=== PATIENT | female | born 1990 | race Caucasian/White ===

== ENCOUNTER 2024-12-12 08:35 | Outpatient (AMB) | payer OTHER, SELFPAY ==
--- NOTE | 2024-12-12 08:46 | MHC.PC.OV ---
Vital Signs 12/12/24 08:52 Height 5 ft 3 in Weight 269 lb 2 oz BMI 47.7 BP 124/80 Blood Pressure Location Lt brachial Position Sitting Pulse 92 Pulse Source Pulse Oximeter Temp 97.5 F Temp Source Skin Pulse Oximetry (%) 98 Oxygen Delivery Method Room Air Intake Visit Reasons: establish care Gynaecological Oncologist Required: No Accompanied by: Self / Same As Patient Allergies No Known Allergies Allergy (Verified 12/12/24 09:01) Medication List - Last Reconciled 12/12/24 by IVIS Pereyra vit no.[id number] 27 mg iron- 800 mcg ( Vitamin) tabs PO DAILY Tobacco use date assessed: 12/12/24 Dental Screening Dental Screen Date: 12/12/24 Did you have a dental visit in the last 12 months?: Yes Did you have a dental problem in the last 6 months where you did not have access to dental care?: No Was dental information given to patient?: Patient has dentist HPI establish care HPI Details The patient is a 34-year-old female who was presenting to establish care Previous PCP: does not have one Last visit:n/a Last PE:n/a Specialist: n/a OBGYN: Dr. Rinku Hathaway in [place], [facility] Past medical history: One child so far and one on the way in december, will be having a , last child was a emergency because he was big (this one is the same), reports that she did not have any complications during any of her pregnancies Medications: Family HX: mother ca-Hodgkin lymphoma, leukaemia-past from [place], htn 2020 (56 y/o), grandfather ,-ca for he panaceas, passed 2014. Problem: The patient reports that she does have any concerns today She reports hx of right breast lump that has been benign The last time it was checked was 6 months ago Right mandibular small lump: Reports that she found this about two years ago, but have not done anything about it The small area does not hurt or moves; it is beneath the skin and cannot be seen by the visual eyes and is only felt during palpation SDM: Will wait until the patient delivers and stabilize then we will revisit this. The patient has a planned in December 30 . Bilateral knees: The patient reports that hurts needs started hurting recently Reports that this is due to the extra weight on. 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, reports that after a long day of working the knee pain is worse But reports that one day they started hurting while she was laying down reports that it feels sore but not sharp, reports 6-7/10 at times, like after working the whole week plans to wait till after having the delivers, she will schedule a follow up appt [facility] Family History Mother Hodgkins disease Leukemia Myocardial infarction Hypertension Maternal Grandfather Pancreatic cancer Other Diabetes Social History Housing: House Patient Tobacco Use Status: Never used Tobacco e-Cigarette/Vaping Use: Never Used Second Hand Smoke Exposure: No service: No Current occupational status: employed Current occupational exposures/hazards: No Cognitive needs: No Hearing needs: No Vision needs: No Questionnaire PHQ-9 Over the last 2 weeks, how often have you been bothered by any of the following problems? 1. Little interest or pleasure in doing things: not at all 2. Feeling down, depressed, or hopeless: not at all 3. Trouble falling or staying asleep, or sleeping too much: not at all 4. Feeling tired or having little energy: not at all 5. Poor appetite or overeating: not at all 6. Feeling bad about yourself - or that you are a failure or have let yourself or your family down: not at all 7. Trouble concentrating on things, such as reading the newspaper or watching television: not at all 8. Moving or speaking so slowly that other people could have noticed. Or the opposite - being so fidgety or restless that you have been moving around a lot more than usual: not at all 9. Thoughts that you would be better off or of hurting yourself in some way: not at all Total score: 0 Depression Screening Interpretation: Negative Depression Screening Done: Yes 69986 - PHQ-9 Billing: Yes Source: Developed by Drs. Rinku Larios, Cheri Jj, Vikas Celis and colleagues, with an educational chad from [employer]. Thrive Questionnaire Date Thrive assessed: 12/12/24 I am a: Patient What is your living situation today?: I have a steady place to live Within the past 12 months, did the food you bought not last and you didn't have the money to get more?: Never true Within the past 12 months, did you worry whether your food would run out before you got money to buy more?: Never true Do you have trouble paying for medicines?: I choose not to answer this question Do you have trouble getting transportation to medical appointments?: No Do you have trouble paying your heating and electricity bill?: No Do you have trouble taking care of your child, family member or friend?: No Do you have trouble with day-to-day activities such as bathing, preparing meals, shopping, managing finances, etc.?: No Are you currently unemployed and looking for a job?: No Are you interested in more education?: I choose not to answer this question Please select the resources that you would like help with: None Currently or been in a relationship where the following occur: No concerns reported THRIVE Score: 0 AUDIT C Alcohol Use Questionnaire (AUDIT-C) 1. How often do you have a drink containing alcohol?: Never 2. How many drinks containing alcohol do you have on a typical day when you are drinking?: 1 or 2 3. How often do you have six or more drinks on one occasion?: Never Total Score: 0 Score Reviewed/Action Taken: No FLORENTIN-7 AMB Questionnaire FLORENTIN-7 Date FLORENTIN - 7 assessed: 12/12/24 Feeling nervous, anxious, or on edge: 0 = Not at all Not being able to stop or control worryin = Not at all Worrying too much about different things: 0 = Not at all Trouble relaxin = Several days Being so restless that it is hard to sit still: 0 = Not at all Becoming easily annoyed or irritable: 0 = Not at all Feeling afraid as if something awful might happen: 0 = Not at all Total FLORENTIN-7 score (0-4 normal; 5-9 mild; 10-14 moderate; 15-21 severe): 1 Source: Developed by Drs. Rinku Larios, Cheri Jj, Vikas Celis and colleagues, with an educational chad from [employer]. FLORENTIN-7 Assessment Billing FLORENTIN-7 Assessment Tool: FLORENTIN-7 Assessment 06309 Review of Systems Const Denies headache(s) Eyes Denies loss of vision ENT Denies vertigo, Denies dizziness, Denies headache(s), Denies sore throat and Reports other (right mandibular lump) Card Denies chest pain, Denies leg edema, Denies lightheadedness and Denies dyspnea Resp Denies cough, Denies hemoptysis, Denies dyspnea and Denies wheezing GI Denies abdominal pain, Denies melena, Denies constipation, Denies diarrhea and Denies vomiting Denies urinary frequency, Denies dysuria and Denies urinary urgency Musc Reports arthralgias (both knees, right worse than left), Denies joint swelling, Denies numbness and Denies tingling Skin/Breast Reports breast mass (hx of right breast lump (benign) last checked 6 months ago) Neuro Denies Abnormal speech present, Denies behavioral changes, Denies vertigo, Denies dizziness, Denies headache(s), Denies loss of vision, Denies memory loss, Denies numbness and Denies tingling Psych Denies anxiety, Denies behavioral changes, Denies depression, Denies memory loss and Denies panic attacks Lui/Lymph Denies easy bleeding and Denies easy bruising Aller/Immun Denies wheezing Physical exam (Primary Care) Vital Signs: Last Vital Signs Temp 97.5 F 12/12/24 08:52 Pulse 92 12/12/24 08:52 BP 124/80 12/12/24 08:52 Pulse Ox 98 12/12/24 08:52 Oxygen Delivery Method Room Air 12/12/24 08:52 BMI result Body Mass Index 47.7 Tobacco/Smoking Status: Tobacco use Status Tobacco use date assessed 12/12/24 12/12/24 08:55 Patient Tobacco Use Status Never used Tobacco 12/12/24 09:00 e-Cigarette/Vaping Use Never Used 12/12/24 09:00 PHQ-9: PHQ-9 Score PHQ-9: Total score 0 12/12/24 09:22 Depression Screening Interpretation: Negative Thrive Assessment: Date of Thrive Assessment Date Thrive assessed 12/12/24 12/12/24 08:55 Currently or been in a relationship where the following occur: No concerns reported Const General: healthy appearing, no acute distress, alert and awake Nutritional Appearance: well nourished Orientation/consciousness: oriented to person, oriented to place and oriented to time HENMT Ears: TM's normal bilaterally General nose exam: Normal nasal mucous membranes and turbinates present Face and sinus: Yes other (small lump area to the right mandibular area) Eyes Conjunctivae: conjunctivae normal Sclerae: sclerae normal Pupils: Equal, round and reactive pupils present Neck Neck: Yes no lymphadenopathy and Yes no JVD Thyroid: Thyroid normal Carotids: no bruits Resp Effort & Inspection: normal respiratory effort and not tachypneic Auscultation: no crackles, no rales, no rhonchi and no wheezes Cardio Rate: regular rate Rhythm: regular rhythm Heart sounds: no murmurs and normal S1 and S2 GI Palpation (GI): Soft to palpation, nontender, no hepatomegaly and no splenomegaly Auscultation: normal bowel sounds General: Yes no CVA tenderness Back/Spine/Pelvis Back: no CVA tenderness Cervical Spine: No Cervical spine tenderness and cervical ROM abnormal Thoracic/Lumbar Spine: thoracic and lumbar spine normal to inspection Pelvis: no pain with anterior-posterior compression Skin General skin exam: no rashes or lesions noted and dry skin Neuro General: oriented to person, oriented to place and oriented to time Cranial nerves: Yes Equal, round and reactive pupils present Speech: No Abnormal speech present Gait exam (Neuro): Normal gait present Motor exam (neuro): no tremor noted Extrem Right upper extremity: full ROM Left upper extremity: full ROM Right lower extremity: normal to inspection, full ROM and normal capillary refill; no edema Left lower extremity: normal to inspection, full ROM and normal capillary refill; no edema Psych Mental Status: mental status grossly normal Speech and movement: Normal speech and movement present Affect: normal affect Attitude: cooperative Thought process: Normal thought process present Coding Level of Care Code New Pt Level 3 (41813) Diagnoses and not yet delivered in third trimester Z34.93 Trimester: third trimester Pain in both knees, unspecified chronicity M25.561; M25.562 Chronicity: unspecified Mass of right breast, unspecified quadrant N63.10 Breast mass location: unspecified quadrant Unspecified cyst of jaw M27.40 Additional Codes PHQ-9 - 13243 - PHQ-9 Billing: Yes ([id number]) FLORENTIN-7 Assessment Billing - FLORENTIN-7 Assessment Tool: FLORENTIN-7 Assessment 53523 ([id number]) Time Spent (min) 29 Assessment & Plan Assessment & Plan (1) and not yet delivered: Code(s): Z34.90 - Encounter for supervision of normal , unspecified, unspecified trimester Category: Medical Qualifiers: Trimester: third trimester Qualified Code(s): Z34.93 - Encounter for supervision of normal , unspecified, third trimester Plan: Patient reports she is having a on December 30. Reports that this is her 2nd and in the 1st she had to have an emergency due to the size of the baby. Reports that she is having the same issue because her baby is on the larger side. (2) Bilateral knee pain: Code(s): M25.561 - Pain in right knee; M25.562 - Pain in left knee Category: Medical Qualifiers: Chronicity: unspecified Qualified Code(s): M25.561 - Pain in right knee; M25.562 - Pain in left knee Plan: Bilateral knees: The patient reports that hurts needs started hurting recently Reports that this is due to the extra weight on. 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, reports that after a long day of working her knee pain is worse But reports that one day they started hurting while she was laying down reports that it feels sore but not sharp, reports 6-7/10 at times, like after working the whole week plans to wait till after having the baby; she will schedule a follow up appt to evaluate these concerns (3) Lump of right breast: Code(s): N63.10 - Unspecified lump in the right breast, unspecified quadrant Category: Medical Qualifiers: Breast mass location: unspecified quadrant Qualified Code(s): N63.10 - Unspecified lump in the right breast, unspecified quadrant Plan: Patient reports lump in right breast that has been benign. Reports that it was checked six-month ago last. (4) Unspecified cyst of jaw: Code(s): M27.40 - Unspecified cyst of jaw Category: Medical Plan: Right mandibular small lump: Reports that she found this about two years ago, but have not done anything about it The small area does not hurt or moves; it is beneath the skin and cannot be seen by the visual eyes and is only felt during palpation SDM: Will wait until the patient delivers and stabilized then we will revisit this. The patient has a planned in December 30 Plan The patient to return for annual physical Orders: Orders Vitamin D 25-OH Total 4 Weeks Z00.00 - Encounter for general adult medical examination without abnormal findings Complete Blood Count Auto Diff 4 Weeks Z00.00 - Encounter for general adult medical examination without abnormal findings Comprehensive [place]. Panel Fast 4 Weeks Z00.00 - Encounter for general adult medical examination without abnormal findings Lipid Panel 4 Weeks Z00.00 - Encounter for general adult medical examination without abnormal findings UA CC w/rflx Micro + Cult 4 Weeks Z00.00 - Encounter for general adult medical examination without abnormal findings TSH reflex Free T4 4 Weeks Z00.00 - Encounter for general adult medical examination without abnormal findings Glucose Fasting 4 Weeks Z00.00 - Encounter for general adult medical examination without abnormal findings Hemoglobin A1c 4 Weeks Z00.00 - Encounter for general adult medical examination without abnormal findings
[2024-12-12 08:52] VITALS: BP 124/80; PULSE 92; TEMP 36.4; O2SAT 98; BMI 47.7
== END 2024-12-12 09:27 | disposition home or self-care (01) ==
DX: M25.561 Pain in right knee (principal); M25.562 Pain in left knee; N63.10 Unspecified lump in the right breast, unspecified quadrant; M27.40 Unspecified cyst of jaw; Z33.1 Pregnant state, incidental

== ENCOUNTER → 2024-12-12 08:35 | Outpatient (BNVA) | payer OTHER, SELFPAY | DX: O26.893 Other specified pregnancy related conditions, third trimester (principal); M25.561 Pain in right knee; M25.562 Pain in left knee; N63.10 Unspecified lump in the right breast, unspecified quadrant; M27.40 Unspecified cyst of jaw; Z3A.00 Weeks of gestation of pregnancy not specified | CPT/HCPCS: 96127 ==

== ENCOUNTER 2025-02-15 09:24 | Outpatient (REF) | payer OTHER, SELFPAY ==
[2025-02-15 10:59] LABS: MANUAL DIFF FLAG NO
[2025-02-15 11:05] LABS: Appearance Urine Clear; Color Urine Yellow; Glucose Urine UA Negative (Negative); Leukocyte Esterase Urine Negative (Negative); Nitrite Urine Negative (Negative); Specific Gravity - Urine 1.015 (1.005-1.025); Urine Blood Negative (Negative); Urine Ketones Negative (Negative); Urine Protein Negative (Neg-Trace)
[2025-02-15 11:08] LABS: Basophils Percent Auto 0.5 % (0-2); Eosinophils Absolute Auto 0.3 X10*3/uL (0.0-0.4); Eosinophils Percent Auto 4.4 % (0-4); Hematocrit 39.1 % (37.0-47.0); Hemoglobin 13.1 g/dl (12.0-16.0); Imm Gran Abs Auto 0.02 X10*3/uL (0.00-0.03); Imm Gran Pct Auto 0.3 % (0.0-0.4); Lymphocytes Absolute Auto 1.9 X10*3/uL (1.2-4.9); Lymphocytes Percent Auto 30.1 % (20-40); Mean Corpuscular HGB Conc 33.5 g/dl (31.0-35.0); Mean Corpuscular Hemoglobin 29.6 pg (27.0-33.0); Mean Corpuscular Volume 88.5 fL (80.0-98.0); Mean Platelet Volume 9.4 fL (9.4-12.3); Monocytes Absolute Auto 0.4 X10*3/uL (0.1-1.2); Monocytes Percent Auto 6.6 % (2-11); Neutrophils Absolute Auto 3.7 x10*3/uL (2.0-8.3); Neutrophils Percent Auto 58.1 % (45-73); Platelet Count 279 X10*3/uL (160-400); Red Blood Count 4.42 X10*6/uL (4.20-5.50); Red Cell Distribution Width 12.2 % (11.0-16.0); White Blood Count 6.3 X10*3/uL (4.8-10.8)
[2025-02-15 11:14] LABS: Estimated Average Glucose 105 mg/dL; Hemoglobin A1C 117.9775 umol/L; Hemoglobin A1c % 5.3 % (<6.0); Total Hemoglobin (HGBA1C) 3461.5224 umol/L
[2025-02-15 11:34] LABS: Alanine Aminotransferase 23 U/L (0-31); Alkaline Phosphatase 164 U/L (39-117); Anion Gap 13 (12-20); Aspartate Amino Transferase 24 U/L (5-31); Bilirubin Total 0.4 mg/dL (0.0-1.0); Blood Urea Nitrogen 15 mg/dL (9-16); Calcium 9.1 mg/dL (8.4-10.2); Carbon Dioxide 27 mmol/L (22-29); Chloride 104 mmol/L (96-108); Cholesterol 205 mg/dL (<200); Estimated Glomerular Filt Rate > 60; Glucose Fasting 93 mg/dL (60-99); HDL Cholesterol 48 mg/dL (>40); LDL Cholesterol Calculated 134 mg/dL (<100); Potassium 3.9 mmol/L (3.3-5.1); Sodium 140 mmol/L (135-145); Total Protein 7.6 g/dL (6.5-8.0); Triglycerides 117 mg/dL (<150)
[2025-02-15 11:55] LABS: TSH reflex Free T4 1.71 uIU/mL (0.32-4.0); Vitamin D 25-OH Total 47.2 ng/mL (>30)
== END 2025-02-15 09:25 | disposition home or self-care (01) ==
LOC: HO.WFDLDS 09:24
DX: Z00.00 Encounter for general adult medical examination without abnormal findings (principal); Z13.1 Encounter for screening for diabetes mellitus; Z13.6 Encounter for screening for cardiovascular disorders
CPT/HCPCS: 36415; 80053; 80061; 81003; 82306; 83036; 84443; 85025

== ENCOUNTER 2025-02-16 14:57 | Outpatient (AMB) | payer OTHER, SELFPAY ==
[2025-02-16 14:59] VITALS: BP 124/84; PULSE 84; RESP 18; TEMP 37.1; O2SAT 98; BMI 45.8
--- NOTE | 2025-02-16 14:59 | A.OFFPC_ITS ---
Vital Signs 02/16/25 14:59 Height 5 ft 3 in Weight 258 lb 12.8 oz BMI 45.8 BP 124/84 Blood Pressure Location Lt brachial Position Sitting Respiration 18 Pulse 84 Pulse Source Pulse Oximeter Temp 98.8 F Temp Source Oral Pulse Oximetry (%) 98 Oxygen Delivery Method Room Air Intake Visit Reasons: annual pe Gleason Operator Required: No Accompanied by: Self / Same As Patient Patient : No (Post-: 1.5mos) Allergies No Known Allergies Allergy (Verified 02/16/25 15:32) Medication List - Last Reconciled 02/16/25 by IVIS Pereyra omega-3 fatty acids 1,000 mg PO DAILY vit no.[id number] 27 mg iron- 800 mcg ( Vitamin) tabs PO DAILY Tobacco use date assessed: 02/16/25 Dental Screening Dental Screen Date: 02/16/25 Did you have a dental visit in the last 12 months?: Yes Did you have a dental problem in the last 6 months where you did not have access to dental care?: No Was dental information given to patient?: No HPI annual pe HPI Details Dentist: due-needs to find a dentist Eye: needs a exam-will make an appt Snellen: Right: Left: Corrected vision: STI screening: Colonoscopy: n/a Pap Smer:up to date PHQ-9: Flu:does not used to take vaccine COVID: none Tdap:up to date Diet:regular Exercise: busy with new born The patient is a 34-year-old female presenting with concerns following a section and issues. She is experiencing emotional strain post-family support, along with difficulties managing dietary needs. The patient's nutritional concerns are tied with as she reports significant hunger and challenges with maintaining a balanced diet amidst family duties. She notes previous hidradenitis suppurativa, managed previously with improved lifestyle habits and resolves during , now recurring . She reports application of breast milk to alleviate discomfort. Symptoms indicative of carpal tunnel syndrome have emerged, consistent with previous gestational experiences, chiefly affecting her right hand with tingling during activities. Positive HPV, previous colposcopy negative Plans for another colposcopy, however, the patient would like to change obgyn and is requesting referral She would like a women obgyn Previously bilateral knee pain isn't hurting at the moment [facility] Surgical History Hx of section Family History Mother Hodgkins disease Leukemia Myocardial infarction Hypertension Maternal Grandfather Pancreatic cancer Other Diabetes Social History Housing: House Patient Tobacco Use Status: Never used Tobacco e-Cigarette/Vaping Use: Never Used Second Hand Smoke Exposure: No service: No Current occupational status: employed Current occupational exposures/hazards: No Cognitive needs: No Hearing needs: No Vision needs: No Questionnaire PHQ-9 Over the last 2 weeks, how often have you been bothered by any of the following problems? 1. Little interest or pleasure in doing things: not at all 2. Feeling down, depressed, or hopeless: not at all 3. Trouble falling or staying asleep, or sleeping too much: not at all 4. Feeling tired or having little energy: not at all 5. Poor appetite or overeating: not at all 6. Feeling bad about yourself - or that you are a failure or have let yourself or your family down: not at all 7. Trouble concentrating on things, such as reading the newspaper or watching television: not at all 8. Moving or speaking so slowly that other people could have noticed. Or the opposite - being so fidgety or restless that you have been moving around a lot more than usual: not at all 9. Thoughts that you would be better off or of hurting yourself in some way: not at all Total score: 0 Depression Screening Interpretation: Negative Depression Screening Done: Yes Source: Developed by Drs. Rinku Larios, Cheri Jj, Vikas Celis and colleagues, with an educational chad from [employer]. Thrive Questionnaire Date Thrive assessed: 02/16/25 I am a: Patient What is your living situation today?: I have a steady place to live Within the past 12 months, did the food you bought not last and you didn't have the money to get more?: Never true Within the past 12 months, did you worry whether your food would run out before you got money to buy more?: Never true Do you have trouble paying for medicines?: I choose not to answer this question Do you have trouble getting transportation to medical appointments?: No Do you have trouble paying your heating and electricity bill?: No Do you have trouble taking care of your child, family member or friend?: No Do you have trouble with day-to-day activities such as bathing, preparing meals, shopping, managing finances, etc.?: No Are you currently unemployed and looking for a job?: No Are you interested in more education?: I choose not to answer this question Please select the resources that you would like help with: None Currently or been in a relationship where the following occur: No concerns reported THRIVE Score: 0 AUDIT C Alcohol Use Questionnaire (AUDIT-C) 1. How often do you have a drink containing alcohol?: Never 3. How often do you have six or more drinks on one occasion?: Never Total Score: 0 Score Reviewed/Action Taken: No FLORENTIN-7 AMB Questionnaire FLORENTIN-7 Date FLORENTIN - 7 assessed: 02/16/25 Feeling nervous, anxious, or on edge: 3 = Nearly every day Not being able to stop or control worryin = Not at all Worrying too much about different things: 0 = Not at all Trouble relaxin = Not at all Being so restless that it is hard to sit still: 0 = Not at all Becoming easily annoyed or irritable: 3 = Nearly every day Feeling afraid as if something awful might happen: 0 = Not at all Total FLORENTIN-7 score (0-4 normal; 5-9 mild; 10-14 moderate; 15-21 severe): 6 Source: Developed by Drs. Rinku Larios, Cheri Jj, Vikas Celis and colleagues, with an educational chad from [employer]. Review of Systems Const Denies headache(s) Eyes Denies loss of vision ENT Denies vertigo, Denies dizziness, Denies headache(s) and Denies sore throat Card Denies chest pain, Denies leg edema and Denies lightheadedness Resp Denies cough, Denies hemoptysis and Denies wheezing GI Denies abdominal pain, Denies melena, Denies constipation, Denies diarrhea and Denies vomiting Denies urinary frequency, Denies dysuria and Denies urinary urgency Musc Details: Reports tingling and numbness in right hand digits (indicative of carpal tunnel syndrome). Denies arthralgias, Denies joint swelling, Reports numbness (right hand digits) and Reports tingling (right hand digits) Neuro Denies Abnormal speech present, Denies behavioral changes, Denies vertigo, Denies dizziness, Denies headache(s), Denies loss of vision, Denies memory loss, Reports numbness (right hand digits) and Reports tingling (right hand digits) Psych Denies anxiety, Denies behavioral changes, Denies depression, Denies memory loss and Denies panic attacks Lui/Lymph Denies easy bleeding and Denies easy bruising Aller/Immun Denies wheezing Physical exam (Primary Care) Vital Signs: Last Vital Signs Temp 98.8 F 02/16/25 14:59 Pulse 84 02/16/25 14:59 Resp 18 02/16/25 14:59 BP 124/84 02/16/25 14:59 Pulse Ox 98 02/16/25 14:59 Oxygen Delivery Method Room Air 02/16/25 14:59 BMI result Body Mass Index 45.8 Tobacco/Smoking Status: Tobacco use Status Tobacco use date assessed 02/16/25 02/16/25 15:17 Patient Tobacco Use Status Never used Tobacco 02/16/25 15:17 e-Cigarette/Vaping Use Never Used 02/16/25 15:17 PHQ-9: PHQ-9 Score PHQ-9: Total score 0 02/17/25 02:21 Depression Screening Interpretation: Negative Thrive Assessment: Date of Thrive Assessment Date Thrive assessed 02/16/25 02/16/25 15:17 Currently or been in a relationship where the following occur: No concerns reported Const General: healthy appearing, no acute distress, alert and awake Nutritional Appearance: well nourished Orientation/consciousness: oriented to person, oriented to place and oriented to time HENMT Ears: TM's normal bilaterally General nose exam: Normal nasal mucous membranes and turbinates present Eyes Conjunctivae: conjunctivae normal Sclerae: sclerae normal Pupils: Equal, round and reactive pupils present Neck Neck: Yes no lymphadenopathy and Yes no JVD Thyroid: Thyroid normal Carotids: no bruits Resp Effort & Inspection: normal respiratory effort and not tachypneic Auscultation: no crackles, no rales, no rhonchi and no wheezes Cardio Rate: regular rate Rhythm: regular rhythm Heart sounds: no murmurs and normal S1 and S2 GI Palpation (GI): Soft to palpation, nontender, no hepatomegaly and no splenomegaly Auscultation: normal bowel sounds Skin General skin exam: no rashes or lesions noted and dry skin Neuro General: oriented to person, oriented to place and oriented to time Cranial nerves: Yes Equal, round and reactive pupils present Speech: No Abnormal speech present Gait exam (Neuro): Normal gait present Motor exam (neuro): no tremor noted Extrem Right upper extremity: full ROM, wrist Details: abnormal to inspection (positive phalen and tinel 's tests) and Extremity exam: right hand Left upper extremity: full ROM Right lower extremity: full ROM; no edema Left lower extremity: full ROM; no edema Psych Mental Status: mental status grossly normal Speech and movement: Normal speech and movement present Affect: normal affect Attitude: cooperative Thought process: Normal thought process present Results Reviewed Results Reviewed: Laboratory Tests 02/15/25 02/15/25 09:26 09:34 WBC 6.3 RBC 4.42 Hgb 13.1 Hct 39.1 MCV 88.5 MCH 29.6 MCHC 33.5 RDW 12.2 Plt Count 279 Sodium 140 Potassium 3.9 Chloride 104 Carbon Dioxide 27 Anion Gap 13 BUN 15 Creatinine 0.77 Estimated GFR > 60 Fasting Glucose 93 Estimat Average Glucose 105 Hemoglobin A1c % 5.3 Calcium 9.1 Total Bilirubin 0.4 AST 24 ALT 23 Alkaline Phosphatase 164 H Total Protein 7.6 Albumin 4.0 Triglycerides 117 Cholesterol 205 H LDL Cholesterol, Calc 134 H HDL Cholesterol 48 25-OH Vitamin D Total 47.2 TSH 1.71 Urine Color Yellow Urine Appearance Clear Urine pH 6.0 Ur Specific [place] 1.015 Urine Protein Negative Urine Glucose (UA) Negative Urine Ketones Negative Urine Blood Negative Urine Nitrite Negative Ur Leukocyte Esterase Negative Coding Level of Care Code Est Pt Prev Care 18-39y([id number]) Diagnoses Annual physical exam Z00.00 Cytology examination positive for high risk human papillomavirus (HPV) R87.810 Right carpal tunnel syndrome G56.01 Mass of right breast, unspecified quadrant N63.10 Breast mass location: unspecified quadrant Hidradenitis suppurativa of left axilla L73.2 Morbid obesity due to excess calories E66.01 Time Spent (min) 38 Assessment & Plan Assessment & Plan (1) Annual physical exam: Code(s): Z00.00 - Encounter for general adult medical examination without abnormal findings Category: Medical (2) Cytology examination positive for high risk human papillomavirus (HPV): Code(s): R87.810 - Cervical high risk human papillomavirus (HPV) DNA test positive Category: Medical (3) Right carpal tunnel syndrome: Code(s): G56.01 - Carpal tunnel syndrome, right upper limb Category: Medical (4) Lump of right breast: Code(s): N63.10 - Unspecified lump in the right breast, unspecified quadrant Category: Medical Qualifiers: Breast mass location: unspecified quadrant Qualified Code(s): N63.10 - Unspecified lump in the right breast, unspecified quadrant (5) Hidradenitis suppurativa of left axilla: Code(s): L73.2 - Hidradenitis suppurativa Category: Medical (6) Morbid obesity due to excess calories: Code(s): E66.01 - Morbid (severe) obesity due to excess calories Category: Medical Plan Preventative guideline and recent labs reviewed with patient For the patient's and concerns, we will focus on ensuring nutritional adequacy while monitoring caloric intake. Symptomatic management of hidradenitis suppurativa ( left axilla) with topical treatments is advised. The potential carpal tunnel syndrome requires a diagnostic test to determine the need for orthopedic intervention. I will monitor cholesterol levels with subsequent follow-up in three months for potential interventions post-. Positive HPV, previous colposcopy negative Plans for another colposcopy, however, the patient would like to change obgyn and is requesting referral She would like a women obgyn, referral placed Patient was informed and verbally consented to the use of an ambient scribe for clinic note documentation during this visit. Orders: Orders NE electromyogram (EMG) 02/17/25 G56.01 - Carpal tunnel syndrome, right upper limb NE nerve conduction velocity 02/17/25 G56.01 - Carpal tunnel syndrome, right upper limb Lipid Panel 3 Months M27.40 - Unspecified cyst of jaw, N63.10 - Unspecified lump in the right breast, unspecified quadrant, Z00.00 - Encounter for general adult medical examination without abnormal findings UA CC w/rflx Micro + Cult 3 Months M27.40 - Unspecified cyst of jaw, N63.10 - Unspecified lump in the right breast, unspecified quadrant, Z00.00 - Encounter for general adult medical examination without abnormal findings Referrals [facility] Referral R87.810 - Cervical high risk human papillomavirus (HPV) DNA test positive, Z01.419 - Encounter for gynecological examination (general) (routine) without abnormal findings Medications: New clindamycin phosphate 1% 1 appl topical BID 14 days 60 mL 0RF
== END 2025-02-16 16:12 | disposition home or self-care (01) ==
LOC: HO.HMCH 14:57
DX: Z00.00 Encounter for general adult medical examination without abnormal findings (principal); R87.810 Cervical high risk human papillomavirus (HPV) DNA test positive; E66.01 Morbid (severe) obesity due to excess calories; Z68.42 Body mass index [BMI] 45.0-49.9, adult; G56.01 Carpal tunnel syndrome, right upper limb; N63.10 Unspecified lump in the right breast, unspecified quadrant; L73.2 Hidradenitis suppurativa

== ENCOUNTER 2025-03-21 10:16 | Outpatient (REF) | payer OTHER, SELFPAY ==
--- NOTE | 2025-03-21 10:18 | EMG_ITS ---
Right median and ulnar motor and sensory studies were performed. Right radial sensory study was performed and median lateral antecubital brachial sensory studies were performed and paraspinal muscles were tested with a needle. IMPRESSION: Mild to moderate right median neuropathy across carpal tunnel. MD YULISSA Corado/CLIFTON / [phone]
== END 2025-03-21 10:17 | disposition home or self-care (01) ==
LOC: HO.NEURO 10:16
DX: G56.01 Carpal tunnel syndrome, right upper limb (principal)
CPT/HCPCS: 95886; 95910

== ENCOUNTER 2025-05-03 15:40 | Outpatient (AMB) | payer OTHER, SELFPAY ==
--- NOTE | 2025-05-03 15:43 | A.OFFVIS_ITS ---
Vital Signs 05/03/25 15:54 Height 5 ft 3 in Weight 258 lb BMI 45.7 Intake Visit Reasons: New Patient-Right Hand Pain, Numbness and tingling Intake Note: Caren is a 34 year old right hand dominant female who presents today for a new patient visit for her right hand upper extremity. Patient reports her symptoms started after she gave , about 4 months ago. She has difficulty with holding items, stating making it hard for her to lift her . Her symptoms are located in her RF, MF, and IF that travels to her hand and up to her shoulder. Her symptoms come mostly at night. No previous treatment. States she was referred by her PCP for a nerve conduction study of her left hand however this has been a month since her referral and she has not been contacted for an appointment. 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 Allergies No Known Allergies Allergy (Verified 05/03/25 15:46) HPI HPI New Patient-Right Hand Pain, Numbness and tingling: Details: Caren is a 34 year old right hand dominant female who presents today for a new patient visit for her right hand upper extremity. Patient reports her symptoms started after she gave , about 4 months ago. She has difficulty with holding items, stating making it hard for her to lift her infant. Her symptoms are located in her RF, MF, and IF that travels to her hand and up to her shoulder. Her symptoms come mostly at night. No previous treatment. States she was referred by her PCP for a nerve conduction study of her left hand however this has been a month since her referral and she has not been contacted for an appointment. 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 [facility] Surgical History Hx of section Family History Mother Hodgkins disease Leukemia Myocardial infarction Hypertension Maternal Grandfather Pancreatic cancer Other Diabetes Social History (Updated 05/03/25 @ 15:48 by AUDREY Garcia) Housing: House Patient Tobacco Use Status: Never used Tobacco e-Cigarette/Vaping Use: Never Used Second Hand Smoke Exposure: No service: No Current occupational status: employed Current occupation: teacher, right hand dominant Current occupational exposures/hazards: No Cognitive needs: No Hearing needs: No Vision needs: No Physical Exam Vital Signs: BMI result Body Mass Index 45.7 Extrem Other: Neuro: Normal sensation of the tips of all digits of bilateral hands in the office today No thenar or intrinsic wasting. Good APB muscle firing and good finger cross. Vascular: Capillary refill brisk. ROM: Patient can make a fist and extend all their digits. Skin: No lacerations or abrasions noted. General: No ecchymosis. No erythema or evidence of infection. [] Assessment & Plan Assessment & Plan (1) Right carpal tunnel syndrome: Code(s): G56.01 - Carpal tunnel syndrome, right upper limb Category: Medical (2) Numbness and tingling of left hand: Code(s): R20.0 - Anesthesia of skin; R20.2 - Paresthesia of skin Category: Medical Plan 1. Numbness and tingling of left hand 2. Carpal tunnel syndrome, right Intermittent, daily, worse at night Patient is educated about this condition Patient is educated about the typical recovery course At this time, patient states she would be interested in surgical intervention, however she has a young baby at home and she would not be able to adhere to a 2 lb weight limit postoperatively Patient also has to change diapers Therefore, patient is referred to Dr. Oviedo for discussion of potential injection to attempts to tide her over symptomatically until she is able to have surgery Patient is amenable to this plan EMG also ordered for assessment of the health of the nerves of the left upper extremity and determine if patient also has carpal tunnel syndrome on this side Patient understands this is amenable to this plan Follow-up for next available appointment with Dr. Oviedo for discussion of right carpal tunnel injection, sooner with any acute concerns Orders: Orders NE nerve conduction velocity Today R20.0 - Anesthesia of skin, R20.2 - Paresthesia of skin NE electromyogram (EMG) Today R20.0 - Anesthesia of skin, R20.2 - Paresthesia of skin Coding Level of Care Code New Pt Level 3 (28929) Diagnoses Right carpal tunnel syndrome G56.01 Numbness and tingling of left hand R20.0; R20.2
[2025-05-03 15:54] VITALS: BMI 45.7
== END 2025-05-03 16:15 | disposition home or self-care (01) ==
LOC: HO.HOS 15:40
DX: G56.01 Carpal tunnel syndrome, right upper limb (principal); R20.0 Anesthesia of skin; R20.2 Paresthesia of skin
CPT/HCPCS: 99203

== ENCOUNTER 2025-05-15 10:47 | Outpatient (REF) | payer OTHER, SELFPAY ==
[2025-05-15 14:29] LABS: Appearance Urine Clear; Glucose Urine UA Negative (Negative); PH 5.5 (5.0-9.0); Specific Gravity - Urine 1.020 (1.005-1.025); UMIC TRIGGER UACC YES
[2025-05-15 15:12] LABS: Cholesterol 202 mg/dL (<200); HDL Cholesterol 41 mg/dL (>40); Triglycerides 175 mg/dL (<150)
== END 2025-05-15 10:48 | disposition home or self-care (01) ==
LOC: HO.WFDLDS 10:47
DX: Z13.6 Encounter for screening for cardiovascular disorders (principal); Z00.00 Encounter for general adult medical examination without abnormal findings; M27.40 Unspecified cyst of jaw; N63.10 Unspecified lump in the right breast, unspecified quadrant
CPT/HCPCS: 36415; 80061; 81001; 82947

== ENCOUNTER 2025-05-16 11:30 | Outpatient (AMB) | payer OTHER, SELFPAY ==
[2025-05-16 11:37] VITALS: BP 100/60; PULSE 82; RESP 18; O2SAT 96; BMI 49.2
--- NOTE | 2025-05-16 11:37 | MHC.PC.OV ---
Vital Signs 05/16/25 11:37 Height 5 ft 3 in Weight 278 lb BMI 49.2 BP 100/60 Blood Pressure Location Lt brachial Position Sitting Respiration 18 Pulse 82 Pulse Source Pulse Oximeter Pulse Oximetry (%) 96 Oxygen Delivery Method Room Air Intake Visit Reasons: 3 month f/u Cutter Wet Machine Required: No Accompanied by: Self / Same As Patient Allergies No Known Allergies Allergy (Verified 05/16/25 11:54) Medication List - Last Reconciled 05/16/25 by IVIS Pereyra vit no.[id number] 27 mg iron- 800 mcg ( Vitamin) tabs PO DAILY Tobacco use date assessed: 05/16/25 Dental Screening Dental Screen Date: 05/16/25 Did you have a dental visit in the last 12 months?: No Did you have a dental problem in the last 6 months where you did not have access to dental care?: No Was dental information given to patient?: No HPI 3 month f/u HPI Details The patient is a 35-year-old female presenting with concerns about weight gain and a breast lump. The patient reports a recent increase in weight despite efforts to eat healthier and engage in physical activity, such as walking. She attributes some of the weight gain to nighttime hunger and snacking, particularly with peanut butter. The patient is currently and is cautious about introducing medications that might affect her milk supply. The patient has identified a lump in her right breast, which she is concerned about due to a family history of cancer. The patient has been diagnosed with carpal tunnel syndrome and is scheduled for injections as a treatment measure. She is managing this condition while caring for an infant, which limits her ability to undergo surgical intervention at this time. The patient has a history of hypercholesterolemia, with recent lab results indicating a downward trend in cholesterol levels, although they are not yet within normal limits. She is making dietary changes to further improve her cholesterol levels. Patient is multiple mole areas to left side of face, including left ear that she would like to be evaluated by Dermatology The patient reports going back to her previous obgyn to complete her biopsy due to HPV, but she still would like to get a new obgyn. e [facility] Medical History (Updated 05/16/25 @ 16:58 by IVIS Pereyra) HLD (hyperlipidemia) Morbid obesity due to excess calories Surgical History Hx of section Family History Mother Hodgkins disease Leukemia Myocardial infarction Hypertension Maternal Grandfather Pancreatic cancer Other Diabetes Social History Housing: House Patient Tobacco Use Status: Never used Tobacco e-Cigarette/Vaping Use: Never Used Second Hand Smoke Exposure: No service: No Current occupational status: employed Current occupation: teacher, right hand dominant Current occupational exposures/hazards: No Cognitive needs: No Hearing needs: No Vision needs: No Questionnaire PHQ-9 Over the last 2 weeks, how often have you been bothered by any of the following problems? 1. Little interest or pleasure in doing things: not at all 2. Feeling down, depressed, or hopeless: not at all 3. Trouble falling or staying asleep, or sleeping too much: not at all 4. Feeling tired or having little energy: not at all 5. Poor appetite or overeating: not at all 6. Feeling bad about yourself - or that you are a failure or have let yourself or your family down: not at all 7. Trouble concentrating on things, such as reading the newspaper or watching television: not at all 8. Moving or speaking so slowly that other people could have noticed. Or the opposite - being so fidgety or restless that you have been moving around a lot more than usual: not at all 9. Thoughts that you would be better off or of hurting yourself in some way: not at all Total score: 0 Depression Screening Interpretation: Negative Depression Screening Done: Yes Source: Developed by Drs. Rinku Larios, Cheri Jj, Vikas Celis and colleagues, with an educational chad from [employer]. Thrive Questionnaire Date Thrive assessed: 05/16/25 I am a: Patient What is your living situation today?: I have a steady place to live Within the past 12 months, did the food you bought not last and you didn't have the money to get more?: Never true Within the past 12 months, did you worry whether your food would run out before you got money to buy more?: Never true Do you have trouble paying for medicines?: I choose not to answer this question Do you have trouble getting transportation to medical appointments?: No Do you have trouble paying your heating and electricity bill?: No Do you have trouble taking care of your child, family member or friend?: No Do you have trouble with day-to-day activities such as bathing, preparing meals, shopping, managing finances, etc.?: No Are you currently unemployed and looking for a job?: No Are you interested in more education?: I choose not to answer this question Please select the resources that you would like help with: None Currently or been in a relationship where the following occur: No concerns reported THRIVE Score: 0 AUDIT C Alcohol Use Questionnaire (AUDIT-C) 1. How often do you have a drink containing alcohol?: Never 3. How often do you have six or more drinks on one occasion?: Never Total Score: 0 Score Reviewed/Action Taken: No FLORENTIN-7 AMB Questionnaire FLORENTIN-7 Date FLORENTIN - 7 assessed: 05/16/25 Feeling nervous, anxious, or on edge: 3 = Nearly every day Not being able to stop or control worryin = Not at all Worrying too much about different things: 0 = Not at all Trouble relaxin = Not at all Being so restless that it is hard to sit still: 0 = Not at all Becoming easily annoyed or irritable: 3 = Nearly every day Feeling afraid as if something awful might happen: 0 = Not at all Total FLORENTIN-7 score (0-4 normal; 5-9 mild; 10-14 moderate; 15-21 severe): 6 Source: Developed by Drs. Rinku Larios, Cheri Jj, Vikas Celis and colleagues, with an educational chad from [employer]. Review of Systems Const Denies headache(s) Eyes Denies loss of vision ENT Denies vertigo, Denies dizziness, Denies headache(s) and Denies sore throat Card Denies chest pain, Denies leg edema and Denies lightheadedness Resp Denies cough, Denies hemoptysis and Denies wheezing GI Denies abdominal pain, Denies melena, Denies constipation, Denies diarrhea and Denies vomiting Denies urinary frequency, Denies dysuria and Denies urinary urgency Musc Denies arthralgias, Denies joint swelling, Denies numbness and Denies tingling Skin/Breast Reports breast mass (Right breast lump at 10:00 proximal areolar) and Reports lesions (Moles to the left side of face, and left ear) Neuro Denies Abnormal speech present, Denies behavioral changes, Denies vertigo, Denies dizziness, Denies headache(s), Denies loss of vision, Denies memory loss, Denies numbness and Denies tingling Psych Denies anxiety, Denies behavioral changes, Denies depression, Denies memory loss and Denies panic attacks Lui/Lymph Denies easy bleeding and Denies easy bruising Aller/Immun Denies wheezing Physical exam (Primary Care) Vital Signs: Last Vital Signs Pulse 82 05/16/25 11:37 Resp 18 05/16/25 11:37 BP 100/60 05/16/25 11:37 Pulse Ox 96 05/16/25 11:37 Oxygen Delivery Method Room Air 05/16/25 11:37 BMI result Body Mass Index 49.2 Tobacco/Smoking Status: Tobacco use Status Tobacco use date assessed 05/16/25 05/16/25 11:46 Patient Tobacco Use Status Never used Tobacco 05/16/25 11:46 e-Cigarette/Vaping Use Never Used 05/16/25 11:46 PHQ-9: PHQ-9 Score PHQ-9: Total score 0 05/16/25 11:55 Depression Screening Interpretation: Negative Thrive Assessment: Date of Thrive Assessment Date Thrive assessed 05/16/25 05/16/25 11:46 Currently or been in a relationship where the following occur: No concerns reported Const General: healthy appearing, no acute distress, alert and awake Nutritional Appearance: well nourished Orientation/consciousness: oriented to person, oriented to place and oriented to time HENMT Ears: TM's normal bilaterally General nose exam: Normal nasal mucous membranes and turbinates present Eyes Conjunctivae: conjunctivae normal Sclerae: sclerae normal Pupils: Equal, round and reactive pupils present Neck Neck: Yes no lymphadenopathy and Yes no JVD Thyroid: Thyroid normal Carotids: no bruits Chest Breast/axilla inspection: normal inspection of the axillae and abnormal inspection of the breast (lump to right breast at the 10 o'clock region close to areola) Chest/axillae images:  1. right breast lump, moveable. Resp Effort & Inspection: normal respiratory effort and not tachypneic Auscultation: no crackles, no rales, no rhonchi and no wheezes Cardio Rate: regular rate Rhythm: regular rhythm Heart sounds: S1 normal heart sound present, S2 normal heart sound present, no murmurs and normal S1 and S2 GI Inspection: Yes obesity Palpation (GI): Soft to palpation, nontender, no hepatomegaly and no splenomegaly Auscultation: normal bowel sounds General: Yes no CVA tenderness Back/Spine/Pelvis Back: no CVA tenderness Skin General skin exam: no rashes or lesions noted and dry skin Neuro General: oriented to person, oriented to place and oriented to time Cranial nerves: Yes CN's II-XII intact bilaterally and Yes Equal, round and reactive pupils present Speech: No Abnormal speech present Gait exam (Neuro): Normal gait present Motor exam (neuro): no tremor noted Deep tendon reflexes (DTR's): Right triceps reflex intensity grade: 2+, Left triceps reflex intensity grade: 2+, Rt Biceps (C5, C6): 2+, Left biceps reflex intensity grade: 2+, Right brachioradialis reflex intensity grade: 2+, Left brachioradialis reflex intensity grade: 2+, Right patellar reflex intensity grade: 2+ and Left patellar reflex intensity grade: 2+ Extrem Right upper extremity: full ROM and wrist Details: Tinel's negative and Phalen's negative Left upper extremity: full ROM and wrist (+numbness and tingling down wrist radiating into first 3 fingers) Right lower extremity: full ROM; no edema Left lower extremity: full ROM; no edema Psych Mental Status: mental status grossly normal Speech and movement: Normal speech and movement present Affect: normal affect Attitude: cooperative Thought process: Normal thought process present Results Reviewed Results Reviewed: Laboratory Tests Laboratory Tests 05/15/25 10:55 Urine Color Yellow Urine Appearance Clear Urine pH 5.5 Ur Specific [place] 1.020 Urine Protein Negative Urine Glucose (UA) Negative Urine Ketones Negative Urine Blood Moderate (2+) H Urine Nitrite Negative Ur Leukocyte Esterase Negative Urine RBC 0-2 Urine WBC 0-5 Ur Squamous Epith Cells 6-10 Urine Bacteria 1+ Hyaline Casts 0-2 05/15/25 10:49 Fasting Glucose 91 Triglycerides 175 H Cholesterol 202 H LDL Cholesterol, Calc 126 H HDL Cholesterol 41 Coding Level of Care Code Est Pt Level 4 (77901) Diagnoses Hyperlipidemia, unspecified hyperlipidemia type E78.5 Hyperlipidemia type: unspecified Morbid obesity due to excess calories E66.01 Mass of right breast, unspecified quadrant N63.10 Breast mass location: unspecified quadrant Right carpal tunnel syndrome G56.01 Numbness and tingling of left hand R20.0; R20.2 Cytology examination positive for high risk human papillomavirus (HPV) R87.810 Numerous skin moles D22.9 Time Spent (min) 39 Assessment & Plan Assessment & Plan (1) HLD (hyperlipidemia): Code(s): E78.5 - Hyperlipidemia, unspecified Category: Medical Qualifiers: Hyperlipidemia type: unspecified Qualified Code(s): E78.5 - Hyperlipidemia, unspecified Plan: Patient triglycerides increased from 117-175, total cholesterol decreased to 202, LDL decreased to 126 and HDL is 41 Overall, cholesterol is heading in the right direction, except triglycerides Reinforced low-cholesterol diet and activity as tolerated We will recheck lipid panel in 3 months (2) Morbid obesity due to excess calories: Code(s): E66.01 - Morbid (severe) obesity due to excess calories Category: Medical Plan: Discussed lifestyle modifications including dietary changes and physical activity The patient would like some help with managing her weight. Spoke the patient about Metformin and phentermine. She is currently breast feeding and only would be able to take the metformin safely. She is planning on stopping breast feeding soon. We will wait until her 3 month follow up exam to start these medications. (3) Lump of right breast: Code(s): N63.10 - Unspecified lump in the right breast, unspecified quadrant Category: Medical Qualifiers: Breast mass location: unspecified quadrant Qualified Code(s): N63.10 - Unspecified lump in the right breast, unspecified quadrant Plan: Patient has a lump in the right breast at the 10:00 area proximal to the areola Right breast ultrasound ordered further evaluate (4) Right carpal tunnel syndrome: Code(s): G56.01 - Carpal tunnel syndrome, right upper limb Category: Medical Plan: The patient had EMG done on 03/21/25 That shows [id number] right median neuropathy across carpal tunnel There is plans for the patient to receive steroid injection in the wrist (5) Numbness and tingling of left hand: Code(s): R20.0 - Anesthesia of skin; R20.2 - Paresthesia of skin Category: Medical Plan: Pending EMG/NCT testing. (6) Cytology examination positive for high risk human papillomavirus (HPV): Code(s): R87.810 - Cervical high risk human papillomavirus (HPV) DNA test positive Category: Medical Plan: The patient has a positive HPV; she wanted to switch OBGYN from her old provider, however, she ran into some difficulty and went back to her old OB in order to obtain the biopsy. This was completed however, she is still looking to be switched to a new OBGYN. The patient would prefer a women provider. (7) Numerous skin moles: Code(s): D22.9 - Melanocytic nevi, unspecified Category: Medical Plan: Multiple skin moles on left side of face, left ear area that the patient would like to be evaluated by a belt sander stone. Referral placed Orders: Orders Lipid Panel 3 Months E66.01 - Morbid (severe) obesity due to excess calories, N63.10 - Unspecified lump in the right breast, unspecified quadrant UA CC w/rflx Micro + Cult 3 Months E66.01 - Morbid (severe) obesity due to excess calories, N63.10 - Unspecified lump in the right breast, unspecified quadrant Vitamin D 25-OH Total 3 Months E66.01 - Morbid (severe) obesity due to excess calories, N63.10 - Unspecified lump in the right breast, unspecified quadrant Complete Blood Count Auto Diff 3 Months E66.01 - Morbid (severe) obesity due to excess calories, N63.10 - Unspecified lump in the right breast, unspecified quadrant Comprehensive Daisy. Panel Fast 3 Months E66.01 - Morbid (severe) obesity due to excess calories, N63.10 - Unspecified lump in the right breast, unspecified quadrant TSH reflex Free T4 3 Months E66.01 - Morbid (severe) obesity due to excess calories, N63.10 - Unspecified lump in the right breast, unspecified quadrant US breast RT limited Today N63.10 - Unspecified lump in the right breast, unspecified quadrant Gamma Glutamyl Transpeptidase 3 Months R74.8 - Abnormal levels of other serum enzymes Referrals [facility] [facility] Referral R87.810 - Cervical high risk human papillomavirus (HPV) DNA test positive, Z01.419 - Encounter for gynecological examination (general) (routine) without abnormal findings
== END 2025-05-16 12:30 | disposition home or self-care (01) ==
LOC: HO.HMCH 11:31
DX: E78.5 Hyperlipidemia, unspecified (principal); E66.01 Morbid (severe) obesity due to excess calories; Z68.42 Body mass index [BMI] 45.0-49.9, adult; G56.01 Carpal tunnel syndrome, right upper limb; R20.0 Anesthesia of skin; R20.2 Paresthesia of skin; R87.810 Cervical high risk human papillomavirus (HPV) DNA test positive; D22.9 Melanocytic nevi, unspecified; N63.10 Unspecified lump in the right breast, unspecified quadrant

== ENCOUNTER → 2025-06-29 14:00 | Outpatient (BNV) | payer OTHER, SELFPAY | PROVIDERS: Visit Provider Radiology Body Imaging | DX: N63.13 Unspecified lump in the right breast, lower outer quadrant (principal) | CPT/HCPCS: 76642; 77062; 77066 ==

== ENCOUNTER 2025-06-29 14:01 | Outpatient (REF) | payer OTHER, SELFPAY ==
--- NOTE | ~2025-06-29 | US_ITS ---
EXAMINATION(S): 1. MM DIAGNOSTIC DIGITAL BREAST TOMOSYNTHESIS, BILATERAL 2. Targeted ultrasound of the right breast CLINICAL INFORMATION: According to the requisition: Right breast lump at 10 o'clock position proximal to periareolar. According to the patient: Patient states she felt a lump near her nipple, however, she does not feel it anymore. Patient is currently breast-feeding, but she pumped 30 minutes prior to the mammogram examination. COMPARISON: None. This is a baseline study. TECHNIQUE: Digital breast tomosynthesis is performed in both the mediolateral oblique and craniocaudal views along with computer-aided detection (CAD). Synthesized 2D images are generated from the tomosynthesis. Spot compression tomosynthesis were obtained. No skin BB marker was placed as the patient no longer feels the lump. FINDINGS: BREAST COMPOSITION: The breasts are extremely dense, which lowers the sensitivity of mammography. RIGHT BREAST: Asymmetry in the lateral breast middle depth is pliable with spot compression, and likely represents overlapping fibroglandular breast tissue. No significant masses, suspicious calcifications or other abnormalities are seen. Targeted ultrasound of the right breast was performed at the location of the previously felt palpable concern. The survey performed from 8:00 to 1:00 axis did not reveal suspicious sonographic findings. LEFT BREAST: No significant masses, suspicious calcifications or other abnormalities are seen. US/US breast RT limited mamm only IMPRESSION: RIGHT BREAST: Negative, no evidence of malignancy. No imaging findings to accounts for patient's palpable concern. Clinical follow-up is recommended. LEFT BREAST: Negative, no mammographic evidence of malignancy. ASSESSMENT: Category 1: Negative RECOMMENDATION: 1. Patient should be managed based on the clinical impression. 2. Otherwise, routine annual screening mammography. (starting at the age of 4040 years old). Results were provided to the patient at time of visit by the technologist. Electronically signed by: Finesse Jaime MD 06/29/2025 05:58 PM EDT
== END 2025-06-29 14:02 | disposition home or self-care (01) ==
LOC: HO.MAMMO 14:01
DX: N63.11 Unspecified lump in the right breast, upper outer quadrant (principal)
CPT/HCPCS: 76642; 77062; 77066

== ENCOUNTER 2025-08-15 09:29 | Outpatient (REF) | payer OTHER, SELFPAY ==
[2025-08-15 11:10] LABS: MANUAL DIFF FLAG NO
[2025-08-15 11:32] LABS: Hematocrit 40.1 % (37.0-47.0); Hemoglobin 13.3 g/dl (12.0-16.0); Imm Gran Abs Auto 0.01 X10*3/uL (0.00-0.03); Imm Gran Pct Auto 0.1 % (0.0-0.4); Lymphocytes Absolute Auto 2.1 X10*3/uL (1.2-4.9); Mean Corpuscular HGB Conc 33.2 g/dl (31.0-35.0); Mean Corpuscular Hemoglobin 29.9 pg (27.0-33.0); Mean Corpuscular Volume 90.1 fL (80.0-98.0); NRBC Abs Auto 0.000 X10*3/uL (0.0-0.012); NRBC Pct Auto 0.0 /100WBC (0.0-0.2); Platelet Count 287 X10*3/uL (160-400); Red Blood Count 4.45 X10*6/uL (4.20-5.50); White Blood Count 7.6 X10*3/uL (4.8-10.8)
[2025-08-15 11:51] LABS: Alanine Aminotransferase 15 U/L (0-31); Albumin Level 4.2 g/dL (3.5-5.0); Alkaline Phosphatase 165 U/L (39-117); Anion Gap 11 (12-20); Aspartate Amino Transferase 22 U/L (5-31); Blood Urea Nitrogen 10 mg/dL (9-16); Calcium 9.0 mg/dL (8.4-10.2); Carbon Dioxide 25 mmol/L (22-29); Chloride 107 mmol/L (96-108); Cholesterol 173 mg/dL (<200); Estimated Glomerular Filt Rate > 60; HDL Cholesterol 41 mg/dL (>40); Potassium 4.0 mmol/L (3.3-5.1); Sodium 139 mmol/L (135-145); Total Protein 7.6 g/dL (6.5-8.0); Triglycerides 96 mg/dL (<150)
[2025-08-15 12:04] LABS: Gamma Glutamyl Transpeptidase 27 U/L (7-33)
== END 2025-08-15 09:30 | disposition home or self-care (01) ==
LOC: HO.WFDLDS 09:29
DX: E66.01 Morbid (severe) obesity due to excess calories (principal); R74.8 Abnormal levels of other serum enzymes; N63.10 Unspecified lump in the right breast, unspecified quadrant; Z13.29 Encounter for screening for other suspected endocrine disorder
CPT/HCPCS: 36415; 80053; 80061; 82306; 82977; 84443; 85025

== ENCOUNTER 2025-08-17 14:29 | Outpatient (AMB) | payer OTHER, SELFPAY ==
[2025-08-17 14:33] VITALS: BP 110/68; PULSE 85; RESP 18; TEMP 36.6; O2SAT 98; BMI 50.2
--- NOTE | 2025-08-17 14:33 | A.OFFPC_ITS ---
Vital Signs 08/17/25 14:33 Height 5 ft 3 in Weight 283 lb 4 oz BMI 50.2 BP 110/68 Blood Pressure Location Lt brachial Position Sitting Respiration 18 Pulse 85 Pulse Source Pulse Oximeter Temp 97.8 F Temp Source Temporal Artery Scan Pulse Oximetry (%) 98 Oxygen Delivery Method Room Air Intake Visit Reasons: hld/obesity Security Team Lead Required: No Accompanied by: Self / Same As Patient Allergies No Known Allergies Allergy (Verified 08/17/25 14:44) Medication List - Last Reconciled 08/17/25 by IVIS Pereyra vit [id number] mg iron- 800 mcg ( Vitamin) tabs PO DAILY Tobacco use date assessed: 08/17/25 Dental Screening Dental Screen Date: 08/17/25 Did you have a dental visit in the last 12 months?: No Did you have a dental problem in the last 6 months where you did not have access to dental care?: No Was dental information given to patient?: No HPI hld/obesity HPI Details The patient is a 35-year-old female presenting for review of lab results and management of ongoing symptoms. Recent lab work showed a slightly high cholesterol level, though it is improving, and low vitamin D. The patient reports feeling overwhelmed, anxious, and stressed, with feelings compounded by issues with her and the demands of work and having a new baby. She has noticed a significant decline in her ability to focus and frequent forgetfulness, particularly when dealing with paperwork, prompting her to question if she has undiagnosed ADHD. She notes that her son exhibits high energy, leading her to believe she may have had similar traits that have worsened after . Her sleep has been poor due to caring for her baby. Last week, before her period, she experienced severe pain in the lower side of her abdomen that worsened when walking forward but not backward. She has an appointment next week to have this evaluated. For health maintenance, a past sonogram showed fibroids, but she did not follow up. She has not seen a dietitian as previously discussed and has never had a skin check. [facility] Medical History HLD (hyperlipidemia) Morbid obesity due to excess calories Surgical History Hx of section Family History Mother Hodgkins disease Leukemia Myocardial infarction Hypertension Maternal Grandfather Pancreatic cancer Other Diabetes Social History Housing: House Patient Tobacco Use Status: Never used Tobacco e-Cigarette/Vaping Use: Never Used Second Hand Smoke Exposure: No service: No Current occupational status: employed Current occupation: teacher, right hand dominant Current occupational exposures/hazards: No Cognitive needs: No Hearing needs: No Vision needs: No Questionnaire PHQ-9 Over the last 2 weeks, how often have you been bothered by any of the following problems? Depression Screening Interpretation: Negative Depression Screening Done: Yes Source: Developed by Drs. Rinku Larios, Cheri Jj, Vikas Celis and colleagues, with an educational chad from [employer]. Thrive Questionnaire Date Thrive assessed: 12/10/24 I am a: Patient What is your living situation today?: I have a steady place to live Within the past 12 months, did the food you bought not last and you didn't have the money to get more?: Never true Within the past 12 months, did you worry whether your food would run out before you got money to buy more?: Never true Do you have trouble paying for medicines?: I choose not to answer this question Do you have trouble getting transportation to medical appointments?: No Do you have trouble paying your heating and electricity bill?: No Do you have trouble taking care of your child, family member or friend?: No Do you have trouble with day-to-day activities such as bathing, preparing meals, shopping, managing finances, etc.?: No Are you currently unemployed and looking for a job?: No Are you interested in more education?: I choose not to answer this question Please select the resources that you would like help with: None Currently or been in a relationship where the following occur: No concerns reported THRIVE Score: 0 FLORENTIN-7 AMB Questionnaire FLORENTIN-7 Date FLORENTIN - 7 assessed: 05/16/25 Source: Developed by Drs. Rinku Larios, Cheri Jj, Vikas Celis and colleagues, with an educational chad from [employer]. Review of Systems Const Reports difficulty sleeping and Denies headache(s) Eyes Denies loss of vision ENT Denies vertigo, Denies dizziness, Denies headache(s) and Denies sore throat Card Denies chest pain, Denies leg edema and Denies lightheadedness Resp Denies cough, Denies hemoptysis and Denies wheezing GI Denies abdominal pain, Denies melena, Denies constipation, Denies diarrhea and Denies vomiting Denies urinary frequency, Denies dysuria and Denies urinary urgency Musc Denies arthralgias, Denies joint swelling, Denies numbness and Denies tingling Skin/Breast Reports lesions (Moles to the left side of face, and left ear) Neuro Denies Abnormal speech present, Denies behavioral changes, Denies vertigo, Denies dizziness, Denies headache(s), Denies loss of vision, Denies memory loss, Denies numbness and Denies tingling Psych Denies anxiety, Denies behavioral changes, Denies depression, Denies memory loss and Denies panic attacks Lui/Lymph Denies easy bleeding and Denies easy bruising Aller/Immun Denies wheezing Physical exam (Primary Care) Vital Signs: Last Vital Signs Temp 97.8 F 08/17/25 14:33 Pulse 85 08/17/25 14:33 Resp 18 08/17/25 14:33 BP 110/68 08/17/25 14:33 Pulse Ox 98 08/17/25 14:33 Oxygen Delivery Method Room Air 08/17/25 14:33 BMI result Body Mass Index 50.2 Tobacco/Smoking Status: Tobacco use Status Tobacco use date assessed 08/17/25 08/17/25 14:41 Patient Tobacco Use Status Never used Tobacco 08/17/25 14:41 e-Cigarette/Vaping Use Never Used 08/17/25 14:41 Depression Screening Interpretation: Negative Thrive Assessment: Date of Thrive Assessment Date Thrive assessed 12/10/24 08/17/25 14:41 Currently or been in a relationship where the following occur: No concerns reported Const General: healthy appearing, no acute distress, alert and awake Nutritional Appearance: well nourished Orientation/consciousness: oriented to person, oriented to place and oriented to time HENMT Ears: TM's normal bilaterally General nose exam: Normal nasal mucous membranes and turbinates present Eyes Conjunctivae: conjunctivae normal Sclerae: sclerae normal Pupils: Equal, round and reactive pupils present Neck Neck: Yes no lymphadenopathy and Yes no JVD Thyroid: Thyroid normal Carotids: no bruits Chest Breast/axilla inspection: normal inspection of the axillae Resp Effort & Inspection: normal respiratory effort and not tachypneic Auscultation: no crackles, no rales, no rhonchi and no wheezes Cardio Rate: regular rate Rhythm: regular rhythm Heart sounds: S1 normal heart sound present, S2 normal heart sound present, no murmurs and normal S1 and S2 GI Inspection: Yes obesity Palpation (GI): Soft to palpation, nontender, no hepatomegaly and no splenomegaly Auscultation: normal bowel sounds General: Yes no CVA tenderness Back/Spine/Pelvis Back: no CVA tenderness Skin General skin exam: dry skin Lesions: lesion noted (multiple skin moles) Neuro General: oriented to person, oriented to place and oriented to time Cranial nerves: Yes CN's II-XII intact bilaterally and Yes Equal, round and reactive pupils present Speech: No Abnormal speech present Gait exam (Neuro): Normal gait present Motor exam (neuro): no tremor noted Extrem Right upper extremity: full ROM and wrist Details: Tinel's negative and Phalen's negative Left upper extremity: full ROM and wrist (+numbness and tingling down wrist radiating into first 3 fingers) Right lower extremity: full ROM; no edema Left lower extremity: full ROM; no edema Psych Mental Status: mental status grossly normal Speech and movement: Normal speech and movement present Affect: normal affect Attitude: cooperative Thought process: Normal thought process present Coding Level of Care Code Est Pt Level 4 (91285) Diagnoses Hyperlipidemia, unspecified hyperlipidemia type E78.5 Hyperlipidemia type: unspecified Morbid obesity due to excess calories E66.01 Right carpal tunnel syndrome G56.01 Cytology examination positive for high risk human papillomavirus (HPV) R87.810 Numerous skin moles D22.9 Elevated alkaline phosphatase level R74.8 Vitamin D deficiency E55.9 Difficulty concentrating R41.840 Time Spent (min) 36 Assessment & Plan Assessment & Plan (1) HLD (hyperlipidemia): Code(s): E78.5 - Hyperlipidemia, unspecified Category: Medical Qualifiers: Hyperlipidemia type: unspecified Qualified Code(s): E78.5 - Hyperlipidemia, unspecified Plan: Triglycerides decreased from 175-96, total cholesterol decreased from 202-173, LDL decreased from 126-113 and HLD maintained at 41 Reinforced low-cholesterol diet and activity as tolerated We will recheck lipid panel in 3 months (2) Morbid obesity due to excess calories: Code(s): E66.01 - Morbid (severe) obesity due to excess calories Category: Medical Plan: Discussed lifestyle modifications including dietary changes and physical activity The patient would like some help with managing her weight. Spoke the patient about Metformin and phentermine. She is currently breast feeding and only would be able to take the metformin safely. She is planning on stopping breast feeding soon. We will wait until her 3 month follow up exam to start metformin. (3) Right carpal tunnel syndrome: Code(s): G56.01 - Carpal tunnel syndrome, right upper limb Category: Medical Plan: The patient had EMG done on 03/21/25 That shows [id number] right median neuropathy across carpal tunnel. There were discussions of carpal tunnel surgery, but this will be placed on hold because the patient is new mother and will not be able to maintain the post op weight limit recommendation. She was referred to Dr. Oviedo to discuss steroid injections in the meantime. (4) Cytology examination positive for high risk human papillomavirus (HPV): Code(s): R87.810 - Cervical high risk human papillomavirus (HPV) DNA test positive Category: Medical Plan: The patient has a positive HPV; she wanted to switch OBGYN from her old provider, however, she ran into some difficulty and went back to her old OB in order to obtain the biopsy. This was completed however, she is still looking to be switched to a new OBGYN. The patient would prefer a women provider. At the most recent visit the patient reports that she seen by a female provider, so she is ok for now. (5) Numerous skin moles: Code(s): D22.9 - Melanocytic nevi, unspecified Category: Medical Plan: Multiple skin moles on left side of face, left ear area that the patient would like to be evaluated by a president and chief executive officer. Referral placed (6) Elevated alkaline phosphatase level: Code(s): R74.8 - Abnormal levels of other serum enzymes Category: Medical Plan: ALP 165, normal liver enzymes, GGT normal- indicating that this is less likely related to liver issues, vitamin d 25.4. Will replace vitamin D deficiency and recheck ALP levels because the decrease of this could cause the elevation of ALP. (7) Vitamin D deficiency: Code(s): E55.9 - Vitamin D deficiency, unspecified Category: Medical Plan: CONTINUE CHOLECALCIFEROL 50 MCG DAILY (8) Difficulty concentrating: Code(s): R41.840 - Attention and concentration deficit Category: Medical Plan: The patient expresses symptoms of being overwhelmed, anxious, and having poor focus and memory, which are impacting her daily activities. Given her concerns about possible ADHD, a referral will be sent for a formal outpatient workup and diagnosis. It was clarified that establishing a diagnosis is the primary goal, and the decision to start medication would be separate and up to the patient. Orders: Orders Comprehensive [place]. Panel Fast 3 Months E78.5 - Hyperlipidemia, unspecified, E66.01 - Morbid (severe) obesity due to excess calories, R20.0 - Anesthesia of skin, R20.2 - Paresthesia of skin Complete Blood Count Auto Diff 3 Months E78.5 - Hyperlipidemia, unspecified, E66.01 - Morbid (severe) obesity due to excess calories, R20.0 - Anesthesia of skin, R20.2 - Paresthesia of skin Lipid Panel 3 Months E78.5 - Hyperlipidemia, unspecified, E66.01 - Morbid (severe) obesity due to excess calories, R20.0 - Anesthesia of skin, R20.2 - Paresthesia of skin UA CC w/rflx Micro + Cult 3 Months E78.5 - Hyperlipidemia, unspecified, E66.01 - Morbid (severe) obesity due to excess calories, R20.0 - Anesthesia of skin, R20.2 - Paresthesia of skin TSH reflex Free T4 3 Months E78.5 - Hyperlipidemia, unspecified, E66.01 - Morbid (severe) obesity due to excess calories, R20.0 - Anesthesia of skin, R20.2 - Paresthesia of skin Vitamin D 25-OH Total 3 Months E78.5 - Hyperlipidemia, unspecified, E66.01 - Morbid (severe) obesity due to excess calories, R20.0 - Anesthesia of skin, R20.2 - Paresthesia of skin Medications: New cholecalciferol (vitamin D3) 50 mcg PO DAILY 90 caps 3RF
== END 2025-08-17 15:17 | disposition home or self-care (01) ==
LOC: HO.HMCH 14:30
DX: E78.5 Hyperlipidemia, unspecified (principal); E66.01 Morbid (severe) obesity due to excess calories; Z68.43 Body mass index [BMI] 50.0-59.9, adult; G56.01 Carpal tunnel syndrome, right upper limb; R87.810 Cervical high risk human papillomavirus (HPV) DNA test positive; D22.9 Melanocytic nevi, unspecified; R74.8 Abnormal levels of other serum enzymes; E55.9 Vitamin D deficiency, unspecified; R41.840 Attention and concentration deficit

== ENCOUNTER 2025-08-30 14:37 | Outpatient (REF) | payer OTHER, SELFPAY ==
--- NOTE | 2025-08-30 14:39 | EMG_ITS ---
Chief complaint: Left hand numbness Reason for referral: Evaluate for Carpal Tunnel Syndrome Referred by: Buster ESTRADA Procedure done: Left upper extremity NCS/EMG Precautions and/or limitations: None The limb temperature was monitored continuously and remained between 32-36 degrees C during the performance of the NCS. Nerve Conduction Studies Anti Sensory Summary Table ?Stim Site NR Onset (ms) Norm Onset (ms) Peak (ms) Norm Peak (ms) O-P Amp (?V) Norm O-P Amp Site1 Site2 Delta-0 (ms) Dist (cm) Dami (m/s) Norm Dami (m/s) Left Median Anti Sensory (2nd Digit) Wrist NR <3.6 >10 Wrist 2nd Digit 14.0 Left Radial Anti Sensory (Thumb) Forearm ? 1.6 1.9 <3.1 33.5 Forearm Thumb 1.6 0.0 Left Ulnar Anti Sensory (5th Digit) Wrist ? 2.0 2.6 <3.7 55.7 >15.0 Wrist 5th Digit 2.0 14.0 70 Motor Summary Table ?Stim Site NR Onset (ms) Norm Onset (ms) O-P Amp (mV) Norm O-P Amp iAmp (mV) Amp (1st) (%) Site1 Site2 Delta-0 (ms) Dist (cm) Dami (m/s) Norm Dami (m/s) Left Median Motor (Abd Poll Brev) Wrist ? 6.5 <3.9 4.2 >4.5 4.9 100.0 Elbow Wrist 1.2 21.0 175 >45 Elbow ? 7.7 3.3 3.9 78.6 Left Ulnar Motor (Abd Dig Minimi) Wrist ? 2.3 <3.0 9.4 >5 11.9 100.0 B Elbow Wrist 2.9 20.0 69 >45 B Elbow ? 5.2 8.9 11.9 94.7 A Elbow B Elbow 1.1 10.0 91 >45 A Elbow ? 6.3 8.7 11.9 92.6 EMG ?Side Muscle Nerve Root Ins Act Fibs Psw Amp Dur Poly Recrt Int Pat Comment Left 1stDorInt Ulnar C8-T1 Nml Nml Nml Nml Nml 0 Nml Complete Left FlexCarRad Median C6-7 Nml Nml Nml Nml Nml 0 Nml Complete Left Biceps Musculocut C5-6 Nml Nml Nml Nml Nml 0 Nml Complete Left Triceps Radial C6-7-8 Nml Nml Nml Nml Nml 0 Nml Complete Left Deltoid Axillary C5-6 Nml Nml Nml Nml Nml 0 Nml Complete FINDINGS: Left median motor nerve showed prolonged distal latency, small amplitude and normal conduction velocity. Left median sensory nerve showed absent response. All other nerves tested were within normal. Concentric needle EMG was performed in selected muscles of the left upper extremity. Study revealed signs of electric abnormalities as shown in the table above. IMPRESSION: 1. This is an abnormal study. 2. There is electrodiagnostic evidence for left moderate-severe median neuropathy at the wrist, consistent with carpal tunnel syndrome. 3. There is no electrodiagnostic evidence for ulnar neuropathy, brachial plexopathy, or cervical radiculopathy. Thank you for your kind referral. Fatemeh Stinson MD, SANDY Board Certified, [place] [employer] (ABPMR) Board Certified, [place] [employer] Electro[employer] (ABEM) CODIN 44416 x1 extremity MTDD
== END 2025-08-30 14:38 | disposition home or self-care (01) ==
LOC: HO.NEURO 14:37
DX: R20.0 Anesthesia of skin (principal); R20.2 Paresthesia of skin
CPT/HCPCS: 95886; 95909

== ENCOUNTER → 2025-08-30 14:39 | Outpatient (BNV) | payer OTHER, SELFPAY | PROVIDERS: Visit Provider Physical Medicine & Rehabilitation | DX: G56.12 Other lesions of median nerve, left upper limb (principal) | CPT/HCPCS: 95886; 95909 ==